=== PATIENT | male | born 1950 | race African-American/Black ===

== ENCOUNTER 2021-09-05 04:22 | Day surgery (SDC) | payer OTHER ==
[2021-09-03 15:04] VITALS: BMI 24.3
[2021-09-05 09:19] VITALS: TEMP 97.1
[2021-09-05 09:30] VITALS: PULSE 51
[2021-09-05 10:34] VITALS: BP 136/85
== END 2021-09-05 10:33 | disposition home or self-care (01) ==
LOC: JASU-ENDO 04:22
PROVIDERS: ATTEND Internal Medicine Gastroenterology
PROC: 0DJD8ZZ Inspection of Lower Intestinal Tract, Via Natural or Artificial Opening Endoscopic (ICD-10-PCS; principal; 2021-09-05 08:45)
DX: Z12.11 Encounter for screening for malignant neoplasm of colon (principal); Z86.010 Personal history of colon polyps